=== PATIENT | female | born 1980 | race African-American/Black ===

== ENCOUNTER 2016-11-05 10:28 | Emergency (ER) | payer OTHER ==
[2016-11-05] MEDS ORDERED: SODIUM CHLORIDE 0.9% 1,000 ML IV ONE (12:11)
[2016-11-05] MEDS ORDERED: ONDANSETRON 4 MG/2 ML VIAL IVP STA (12:11)
[2016-11-05] MEDS ORDERED: ONDANSETRON 4 MG/2 ML VIAL ONE (12:17)
[2016-11-05] MEDS ORDERED: KETOROLAC 30 MG/ML VIAL ONE (13:00)
[2016-11-05] MEDS ORDERED: KETOROLAC 60 MG/2 ML VIAL IVP STA (13:05)
== END 2016-11-05 13:23 | disposition home or self-care (01) ==
DX: K52.9 Noninfective gastroenteritis and colitis, unspecified (principal); E86.0 Dehydration

== ENCOUNTER 2018-07-06 12:47 | Emergency (ER) | payer OTHER ==
[2018-07-06 13:04] VITALS: BP 111/67
[2018-07-06] MEDS ORDERED: SODIUM CHLORIDE 0.9% 1,000 ML IV ONE (13:30)
[2018-07-06] MEDS ORDERED: ONDANSETRON 4 MG/2 ML VIAL IVP STA (13:30)
[2018-07-06] MEDS ORDERED: KETOROLAC 60 MG/2 ML VIAL IVP STA (13:30)
--- NOTE | 2018-07-06 13:33 | ED Physician Documentation ---
History of Present Illness - Stated complaint Stated Complaint: VOMITING/NAUSEA/FEVER - Chief complaint Chief Complaint: General - History obtained from History obtained from: Patient, Friend - History of Present Illness Timing: Other (Since Friday, 3 days ago she has had fevers chills and body aches, today with nausea and vomiting. She denies abdominal pain, sore throat, runny nose or cough. No recent travel or sick contacts. She had a remote cholecystectomy in 2006.) Review of Systems Constitutional: reports: Fever, Chills, Myalgias, Fatigue Ears: denies: Ear pain, Drainage/discharge Nose: denies: Rhinorrhea / runny nose, Congestion Throat: denies: Sore throat Cardiac: denies: Palpitations Respiratory: denies: Dyspnea, Cough GI: reports: Nausea, Vomiting. 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 : None HEENT: None Psych: Anxiety Musculoskeletal: None Derm: None - Past Surgical History Past Surgical History: Yes General: Cholecystectomy Ortho: Other - Present Medications Home Medications: Ambulatory Orders Medication Instructions Recorded Confirmed FLUoxetine [PROzac] 20 mg PO DAILY 11/05/16 11/05/16 Ondansetron Odt [Zofran] 4 mg TL Q6H PRN #10 tablet 11/05/16 Ibuprofen [Motrin] 800 mg PO Q8H PRN #30 tablet 07/06/18 Ondansetron Odt [Zofran] 4 mg TL Q6H PRN #10 tablet 07/06/18 - Allergies Allergies/Adverse Reactions: Allergies Allergy/AdvReac Type Severity Reaction Status Date / Time No Known Drug Allergies Allergy Verified 11/05/16 10:41 - Social History Does the pt smoke?: No Smoking Status: Never smoker Does the pt drink ETOH?: No Does the pt have substance abuse?: No - Family History Family history: reports: Non contributory - Immunizations Immunizations are current?: Yes - POLST Patient has POLST: No PD ED PE NORMAL - Vitals Vital signs reviewed: Yes - General General: Alert and oriented X 3, No acute distress - HEENT HEENT: PERRL, Ears normal, Moist mucous membranes, Pharynx benign - Neck Neck: Supple, no meningeal sign, No bony TTP - Cardiac Cardiac: RRR, No murmur - Respiratory Respiratory: No respiratory distress, Clear bilaterally - Abdomen Abdomen: Soft, Other (She has some mild right-sided abdominal tenderness without surgical signs. She was not aware of abdominal pain before I palpated her.) - Back Back: No CVA TTP, No spinal TTP - Derm Derm: Normal color, Warm and dry, No rash - Extremities Extremities: No edema, No calf tenderness / cord - Neuro Neuro: Alert and oriented X 3, Normal speech Results - Vitals Vitals: Vital Signs - 24 hr 07/06/18 13:01 Temperature 36.9 C Heart Rate 103 H Respiratory 14 Rate Blood Pressure 111/67 O2 Saturation 98 Oxygen O2 Source Room air - Rads (name of study) CT A/P Radiology: EMP read contemporaneously (normal) PD MEDICAL DECISION MAKING - ED course ED course: 38-year-old woman with what seems like a flulike illness, some signs of dehydration with tachycardia and decreased urine output today. She does have abdominal tenderness on exam but no abdominal pain. Leukopenia was concerning for a viral process as well, mono added on a negative. She has a very mild hepatitis. She does not have a gallbladder. This is all again consistent with some sort of viral issue. Given the persistent abdominal tenderness a CT scan was done and negative. - Sepsis Event Vital Signs: Vital Signs - 24 hr 07/06/18 13:01 Temperature 36.9 C Heart Rate 103 H Respiratory 14 Rate Blood Pressure 111/67 O2 Saturation 98 Oxygen O2 Source Room air Departure - Departure Disposition: 01 Home, Self Care Clinical Impression: Viral syndrome, Elevated liver enzymes Abdominal tenderness Qualifiers: Abdominal location: right lower quadrant Presence of rebound: absent Qualified Code(s): R10.813 - Right lower quadrant abdominal tenderness Condition: Good Record reviewed to determine appropriate education?: Yes Instructions: ED Abdominal Pain Unkn Cause, ED Viral Syndrome Prescriptions: Ibuprofen [Motrin] 800 mg PO Q8H PRN #30 tablet PRN Reason: PAIN &/OR FEVER Ondansetron Odt [Zofran] 4 mg TL Q6H PRN #10 tablet PRN Reason: Nausea / Vomiting Comments: As discussed, the labs are consistent with a viral process. Specific tests for mononucleosis and influenza were negative. He also mild elevation of your liver enzymes. He should be off of work for a few days. Stop taking Tylenol and stick to the ibuprofen. Follow-up with your doctor in 2 days for recheck, consider repeat lab testing on the liver to make sure that has normalized. Forms: Activity restrictions
[2018-07-06 13:38] LABS: GLUCOSE, URINE (UA) NEGATIVE (NEGATIVE); KETONES,URINE (UA) >=80 mg/dL (NEGATIVE); LEUKOCYTE ESTERASE, URINE NEGATIVE (NEGATIVE); NITRITE,URINE NEGATIVE (NEGATIVE); OCCULT BLOOD,URINE LARGE (NEGATIVE); PROTEIN,URINE 100 mg/dL (NEGATIVE); UROBILINOGEN,URINE 0.2 (NORMAL) E.U./dL (NORMAL)
[2018-07-06 13:42] LABS: BILIRUBIN,URINE NEGATIVE (NEGATIVE); CLARITY,URINE CLOUDY (CLEAR); HCG UR QUAL NEGATIVE; ICTOTEST,URINE NEGATIVE
[2018-07-06 13:47] LABS: BACTERIA,URINE Many /HPF (None Seen); SQUAMOUS EPITHELIAL CELL,UR MANY Squamous (<= Few)
[2018-07-06 13:56] LABS: BASOPHILS % (AUTO) 0.2 %; EOSINOPHILS % (AUTO) 0.1 %; HGB - HEMOGLOBIN 13.8 g/dL (12.0-16.0); LYMPHOCYTES # (AUTO) 0.6 10^3/uL (1.5-3.5); LYMPHOCYTES % (AUTO) 20.3 %; MEAN CORPUSCULAR HGB CONC 34.7 g/dL (32.0-36.0); MEAN CORPUSCULAR VOLUME 86.6 fL (81.0-99.0); MEAN PLATELET VOLUME 8.3 fL (7.9-10.8); MONOCYTES # (AUTO) 0.1 10^3/uL (0.0-1.0); MONOCYTES % (AUTO) 4.7 %; NEUTROPHILS # (AUTO) 2.1 10^3/uL (1.5-6.6); NEUTROPHILS % (AUTO) 74.7 %; PLT - PLATELET COUNT 156 10^3/uL (130-450); RED BLOOD COUNT 4.58 10^6/uL (4.20-5.40); RED CELL DISTRIBUTION WIDTH 13.1 % (12.0-15.0); WHITE BLOOD COUNT 2.8 x10^3/uL (4.8-10.8)
[2018-07-06 14:07] LABS: ALBUMIN 3.8 g/dL (3.2-5.5); ALBUMIN/GLOBULIN RATIO 1.3 (1.0-2.2); BILIRUBIN,TOTAL 1.1 mg/dL (0.2-1.0); CALCIUM 8.6 mg/dL (8.5-10.3); CREATININE 0.7 mg/dL (0.4-1.0); TOTAL PROTEIN 6.8 g/dL (6.7-8.2)
[2018-07-06 14:21] LABS: INR 1.2 (0.8-1.2); PT - PROTHROMBIN TIME 13.1 secs (9.9-12.6)
[2018-07-06 14:31] LABS: RBC MORPHOLOGY (MULTIPLE) 1+ ANISOCYTOSIS (NORMAL)
[2018-07-06] MEDS ORDERED: METOCLOPRAMIDE 10 MG/2 ML VIAL IVP STA (14:37)
[2018-07-06] MEDS ORDERED: IOPAMIDOL-300 100 ML VIAL ONE (14:50)
[2018-07-06] MEDS ORDERED: IOPAMIDOL-300 100 ML VIAL IVP ONE (15:01)
--- NOTE | 2018-07-06 15:27 | CT Report ---
Reason: IV only, R abd pain Procedure Date: 07/06/2018 Accession Number: [id number] / [id number] Procedure: CT - Abdomen/Pelvis W/ CPT Code: FULL RESULT: EXAM: CT ABDOMEN AND PELVIS EXAM DATE: 07/06/2018 03:04 PM. CLINICAL HISTORY: IV only, right abdominal pain. COMPARISONS: None. TECHNIQUE: Routine helical CT imaging was performed through the abdomen and pelvis. IV contrast: ISOVUE 300 100mL. Enteric contrast: No. Reconstructions: Coronal and sagittal. In accordance with CT protocol optimization, one or more of the following dose reduction techniques were utilized for this exam: automated exposure control, adjustment of mA and/or KV based on patient size, or use of iterative reconstructive technique. FINDINGS: Lung Bases: Unremarkable. Liver: Normal. No masses. Gallbladder/Bile Ducts: Status post cholecystectomy. Spleen: Normal. Pancreas: Normal. Adrenal Glands: Normal. Kidneys: Normal. No masses or hydronephrosis. Peritoneal Cavity/Bowel: There is mild to moderate pancolonic diverticulosis without evidence of diverticulitis. No free fluid, free air or adenopathy. No masses or acute inflammatory process. The appendix is well visualized and normal. Pelvic Organs: Normal. The bladder and visualized pelvic organs are within normal limits. Vasculature: No aneurysms or other significant abnormality. Bones: No significant abnormality. Other: None. IMPRESSION: The etiology of the patient's acute pain is not identified. [facility]
== END 2018-07-06 15:49 | disposition home or self-care (01) ==
LOC: ED 12:47
DX: B34.9 Viral infection, unspecified (principal); R74.8 Abnormal levels of other serum enzymes; R10.813 Right lower quadrant abdominal tenderness; K75.9 Inflammatory liver disease, unspecified
CPT/HCPCS: 36415; 74177; 80053; 80307; 81001; 81025; 83690; 85025; 85610; 86308; 87275; 87276; 96361; 96374; 96375; 99283; J2765; Q9967; 81003; 84703; 87086